=== PATIENT | male | born 1955 | race Caucasian/White ===

== ENCOUNTER 2016-04-26 14:31 | Emergency (ER) | payer BC ==
[2016-04-26 14:52] VITALS: TEMP 99; BMI 34.1
[2016-04-26 15:08] LABS: AUTOMATED EOSINOPHIL 2.1 % (0-5); AUTOMATED LYMPH 21.2 % (17-44); AUTOMATED MONOCYTE 10.7 % (3-10); MPV 9.4 fL (7.4-10.4)
[2016-04-26 15:40] LABS: WBC/URINE 0-2 (0-2)
[2016-04-26 15:42] LABS: BLOOD UREA NITROGEN 25 MG/DL (9-20); CALCIUM 9.5 MG/DL (8.4-10.2); CALCULATED OSMOLALITY 273 MOs/Kg (270-290); CHLORIDE 103 mEq/L (98-107); GLUCOSE 100 MG/DL (70-99); SODIUM LEVEL 140 mEq/L (137-146); TOTAL PROTEIN 6.8 G/DL (6.3-8.2)
[2016-04-26 15:52] LABS: LEUKOCYTES/URINE NEG (NEGATIVE); NITRITE/URINE NEG (NEGATIVE); URINE OCCULT BLOOD NEG (NEG/TRACE)
[2016-04-26] MEDS ORDERED: KETOROLAC TROMETH 30 MG/ML VIAL IV ONE (15:56)
[2016-04-26] MEDS ORDERED: NS 1,000 ML IV ONE (15:56)
--- NOTE | 2016-04-26 16:12 | EDPRACDOC ---
- General Information Chief Complaint: Male Urogenital Problems Stated Complaint: LT FLANK PAIN HX KIDNEY STONES Time Seen by Provider: 04/26/16 15:51 Mode Of Arrival: Car Home Medications: Home Medications Eszopiclone [Lunesta] 3 mg PO QHS PRN 04/26/16 Ketorolac Tromethamine [Toradol] 10 mg PO Q6H PRN #20 tab 04/26/16 Tamsulosin HCl [Flomax] 0.4 mg PO DAILY #14 cap 04/26/16 Allergies/Adverse Reactions: Allergies Allergy/AdvReac Type Severity Reaction Status Date / Time No Known Allergies Allergy Verified 04/26/16 14:47 - History of Present Illness Onset: yesterday am HPI: PT WOKE UP YESTERDAY MORNING WITH A PAIN IN HIS LEFT FLANK. HE SAID THAT IT FEELS SIMILAR TO HIS PRIOR KIDNEY STONE. HE HAS NOT HAD ONE IN 10 TO 15 YEARS. 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 Pain Began: Reports: Spontaneous Pain Location: Reports: Back, Flank Pain Severity: Moderate Pain Quality: Reports: Sharp Oral Intake: Normal Urinary Output: Normal Modifying Factors: improves with: Movement ED Past Medical History - Patient Medical History GI/ History: Reports: Kidney Stones, Gastroesophageal Reflux Systemic History: Denies: Cancer Surgical History: Reports: Hernia Surgery, Tonsillectomy/Adnoidectomy - Social Medical History Smoking Status: Never smoker ETOH: None Substance Abuse: None Lives In: Home EDM Review of Systems - Review of Systems ROS Negative Except as Marked: Yes All systems reviewed and were negative except as marked Musculoskeletal: Back - Physical Exam Constitutional: Alert (Awake), No apparent distress Oriented to: Time, Person, Place Last recorded Vital Signs: Last Vital Signs Temp 99.0 F 04/26/16 14:47 Pulse 69 04/26/16 14:47 Resp 18 04/26/16 14:47 BP 156/83 04/26/16 14:47 Pulse Ox 97 04/26/16 14:47 Oxygen Pulse Oxygen Saturation 97 O2 Device Room Air Oxygen Flow Rate Fraction of Inspired Oxygen ( FIO2) - HEENT Head: Normal ( normocephalic) Eye Exam: Normal (PERRL, EOMI, Sclera white) Oropharynx: Normal (Pharynx:Moist without exudate,Gums-no swelling) ENT EAC: Normal TMJ: Normal Nose: No Symptoms Reported (septum midline) Neck: Normal (FROM, trachea at midline) - Respiratory/Cardiovascular Respiratory: Normal - CTA (BBS clear to auscultation without adventitious sounds ) Cardiovascular: Normal (RRR without murmur, gallop or rub) - GI Auscultation: Normal (NABS) Palpation: Normal (Soft,No rebound or guarding, non distended) Tenderness: Non tender Salcedo's Sign: Negative - Musculoskeletal Back: Normal (Non-Tender) Extremities: Normal (Normal tone, Pulses 2+ No cyanosis or edema, FROM) - Integumentary Skin: Normal, Warm, Dry Lymphatics: Normal (no adenopathy) - Neurologic Memory Impaired: Normal Motor Function: Normal (Normal tone, Pulses 2+ No cyanosis or edema, FROM) Cranial Nerve: Normal (CN II-X11 intact sensation, strength 5/5) Cerebellar: Normal Mood Description: Normal Thought: Coherent Perception: Normal - Results 04/26/16 14:55 04/26/16 14:55 WBC 7.6 xk/uL (3.8-10.8) 04/26/16 14:55 RBC 4.78 xM/uL (4.70-6.10) 04/26/16 14:55 Hgb 14.3 g/dL (14.0-18.0) 04/26/16 14:55 Hct 42.0 % (42-52) 04/26/16 14:55 MCV 88 fL (80-94) 04/26/16 14:55 MCH 30.0 pg (27-32) 04/26/16 14:55 MCHC 34.1 g/dl (33-36) 04/26/16 14:55 RDW 15.6 % (11.5-14.5) H 04/26/16 14:55 Plt Count 180 xk/uL (130-400) 04/26/16 14:55 MPV 9.4 fL (7.4-10.4) 04/26/16 14:55 Neut % (Auto) 65.0 % (45-76) 04/26/16 14:55 Lymph % (Auto) 21.2 % (17-44) 04/26/16 14:55 [place] % (Auto) 10.7 % (3-10) H 04/26/16 14:55 Eos % (Auto) 2.1 % (0-5) 04/26/16 14:55 Baso % (Auto) 1.0 % (0-2) 04/26/16 14:55 Absolute Neuts (auto) 4.94 xk/uL (1.7-8.2) 04/26/16 14:55 Absolute Lymphs (auto) 1.60 xk/uL (0.65-4.75) 04/26/16 14:55 Sodium 140 mEq/L (137-146) 04/26/16 14:55 Potassium 4.4 mEq/L (3.5-5.1) 04/26/16 14:55 Chloride 103 mEq/L (98-107) 04/26/16 14:55 Carbon Dioxide 27 mMOL/L (22-33) 04/26/16 14:55 Anion Gap 14 mEq/L (8-16) 04/26/16 14:55 BUN 25 MG/DL (9-20) H 04/26/16 14:55 Creatinine 1.10 MG/DL (0.66-1.25) 04/26/16 14:55 Estimated GFR (MDRD) > 60 mL/min (>=60) 04/26/16 14:55 Glucose 100 MG/DL (70-99) H 04/26/16 14:55 Calculated Osmolality 273 MOs/Kg (270-290) 04/26/16 14:55 Calcium 9.5 MG/DL (8.4-10.2) 04/26/16 14:55 Total Bilirubin 0.5 MG/DL (0.2-1.3) 04/26/16 14:55 AST 22 IU/L (17-59) 04/26/16 14:55 ALT 37 IU/L (21-72) 04/26/16 14:55 Alkaline Phosphatase 76 IU/L (50-160) 04/26/16 14:55 Total Protein 6.8 G/DL (6.3-8.2) 04/26/16 14:55 Albumin 4.2 G/DL (3.5-5.0) 04/26/16 14:55 Urine Color Yellow 04/26/16 14:51 Urine Clarity Clear 04/26/16 14:51 Urine pH 5.0 (5.0-8.0) 04/26/16 14:51 Ur Specific [place] 1.035 (1.003-1.035) 04/26/16 14:51 Urine Protein 1+ (NEG/TRACE) H 04/26/16 14:51 Urine Glucose (UA) Neg (NEGATIVE) 04/26/16 14:51 Urine Ketones Neg (NEGATIVE) 04/26/16 14:51 Urine Occult Blood Neg (NEG/TRACE) 04/26/16 14:51 Urine Nitrite Neg (NEGATIVE) 04/26/16 14:51 Urine Bilirubin Neg (NEGATIVE) 04/26/16 14:51 Urine Urobilinogen 0.2 MG/DL (0-1) 04/26/16 14:51 Ur Leukocyte Esterase Neg (NEGATIVE) 04/26/16 14:51 Urine RBC 2-5 (0-2) H 04/26/16 14:51 Urine WBC 0-2 (0-2) 04/26/16 14:51 Ur Epithelial Cells Occ 04/26/16 14:51 Urine Bacteria Few (NEG/FEW) 04/26/16 14:51 Urine Mucus Occ (NEG/OCC) 04/26/16 14:51 Lab Results 04/26/16 04/26/16 04/26/16 14:55 14:55 14:51 WBC 7.6 RBC 4.78 Hgb 14.3 Hct 42.0 MCV 88 MCH 30.0 MCHC 34.1 RDW 15.6 H Plt Count 180 MPV 9.4 Neut % (Auto) 65.0 Lymph % (Auto) 21.2 [place] % (Auto) 10.7 H Eos % (Auto) 2.1 Baso % (Auto) 1.0 Absolute Neuts (auto) 4.94 Absolute Lymphs (auto) 1.60 Sodium 140 Potassium 4.4 Chloride 103 Carbon Dioxide 27 Anion Gap 14 BUN 25 H Creatinine 1.10 Estimated GFR (MDRD) > 60 Glucose 100 H Calculated Osmolality 273 Calcium 9.5 Total Bilirubin 0.5 AST 22 ALT 37 Alkaline Phosphatase 76 Total Protein 6.8 Albumin 4.2 Urine Color Yellow Urine Clarity Clear Urine pH 5.0 Ur Specific [place] 1.035 Urine Protein 1+ H Urine Glucose (UA) Neg Urine Ketones Neg Urine Occult Blood Neg Urine Nitrite Neg Urine Bilirubin Neg Urine Urobilinogen 0.2 Ur Leukocyte Esterase Neg Urine RBC 2-5 H Urine WBC 0-2 Ur Epithelial Cells Occ Urine Bacteria Few Urine Mucus Occ - Diagnostic Imaging Abdomen Image interpreted by: Radiologist . Bilateral nephrolithiasis. No ureterolithiasis or obstructive uropathy. 2. Atherosclerotic calcification of the abdominal aorta. Decision Time to Discharge: 17:41 - Departure Yes I personally saw and evaluated the patient. Disposition: Home Condition: Fair Final Diagnosis: Kidney stones Instructions: Kidney Stones (ED) Education/Counseling Given To: Patient Education/Counseling Given Regarding: Diagnosis, Treatment, Follow Up Referrals: Philippe Glover MD [Primary Care Provider] - One Week Sagar Wilcox MD [Staff Physician] - One Week Prescriptions: Ketorolac Tromethamine [Toradol] 10 mg PO Q6H PRN #20 tab PRN Reason: Pain Tamsulosin HCl [Flomax] 0.4 mg PO DAILY #14 cap
--- NOTE | 2016-04-26 17:33 | DIRPT ---
CLINICAL DATA: LEFT flank pain, kidney stones.LEFT flank pain. History of kidney stones. Pain for 1 day. EXAM: CT ABDOMEN AND PELVIS WITHOUT CONTRAST TECHNIQUE: Multidetector CT imaging of the abdomen and pelvis was performed following the standard protocol without IV contrast. COMPARISON: None. FINDINGS: Lower chest: Lung bases are clear. Hepatobiliary: No focal hepatic lesion. No biliary duct dilatation. Gallbladder is normal. Common bile duct is normal. Pancreas: Pancreas is normal. No ductal dilatation. No pancreatic inflammation. Spleen: Normal spleen Adrenals/urinary tract: Twp 2 mm calculi within the RIGHT kidney. One 3 mm calculus LEFT kidney. No ureterolithiasis or obstructive uropathy. No bladder calculi. Stomach/Bowel: Stomach, small bowel, appendix, and cecum are normal. The colon and rectosigmoid colon are normal. Vascular/Lymphatic: Abdominal aorta is normal caliber with atherosclerotic calcification. There is no retroperitoneal or periportal lymphadenopathy. No pelvic lymphadenopathy. Reproductive: Prostate normal. Other: No free fluid. Musculoskeletal: No aggressive osseous lesion. IMPRESSION: 1. Bilateral nephrolithiasis. No ureterolithiasis or obstructive uropathy. 2. Atherosclerotic calcification of the abdominal aorta. Electronically Signed By: Braxton Sotelo M.D. On: 04/26/2016 17:31
[2016-04-26 17:51] VITALS: BP 142/74; PULSE 68
== END 2016-04-26 17:50 | disposition home or self-care (01) ==
LOC: ED 14:31
DX: N20.0 Calculus of kidney (principal)
CPT/HCPCS: 36415; 74176; 80053; 81001; 85025; 96361; 96374; 99283; J1885